=== PATIENT | male | born 1980 | race African-American/Black ===

== ENCOUNTER 2023-12-25 07:38 | Emergency (ER) | payer BC, OTHER ==
[2023-12-25] MEDS ORDERED: Dexamethasone 4 mg/ml Vial ONE (08:22)
[2023-12-25] MEDS ORDERED: Acetaminophen 500 MG TAB ONE (08:27)
== END 2023-12-25 08:35 | disposition home or self-care (01) ==
LOC: ERS 07:38
DX: K08.89 Other specified disorders of teeth and supporting structures (principal); K04.7 Periapical abscess without sinus
CPT/HCPCS: 99282; J1100